=== PATIENT | male | born 1990 ===

== ENCOUNTER 2018-10-16 01:30 | Emergency (ER) | payer BC ==
--- NOTE | 2018-10-16 02:09 | ED PDOC ---
HPI: CCC, URI, Sore Throat Time Seen by Provider: 10/16/18 01:45 Chief Complaint (Nursing): Flu-like Symptoms Chief Complaint (Provider): fever History Per: Patient History/Exam Limitations: no limitations Onset/Duration Of Symptoms: Days (3) Current Symptoms Are (Timing): Still Present Associated Symptoms: Fever, Cough, Myalgias, Nasal Congestion Additional Complaint(s): 28 y/o male presents for evaluation of fever x 3 days. Associated headache, bodyaches, nasal congestion, and productive cough. Denies ear pain, sore throat, vomiting, shortness of breath, changes in bowel movements, urinary symptoms, recent travel, sick contacts. Patient has been taking Dayquil and a friends Amoxicillin with little improvement Past Medical History Reviewed: Historical Data, Nursing Documentation, Vital Signs Vital Signs: Last Vital Signs Temp 100.3 F H 10/16/18 01:45 Pulse 91 H 10/16/18 01:45 Resp 18 10/16/18 01:45 BP 124/65 10/16/18 01:45 Pulse Ox 99 10/16/18 01:45 Primary Care Provider: FAMILY PROVIDER,NO - Medical History PMH: No Chronic Diseases - Surgical History Surgical History: No Surg Hx - Family History Family History: States: No Known Family Hx - Living Arrangements Living Arrangements: With Family - Home Medications Home Medications: Ambulatory Orders Medication Instructions Recorded Fluticasone Nasal [Flonase] 1 actuation NS BID #1 bottle 10/16/18 Ibuprofen [Motrin Tab] 1 tab PO Q6 PRN #20 tab 10/16/18 guaiFENesin/Dextromethorphan 1 - 2 tab PO Q12H PRN #20 tab 10/16/18 [guaiFENesin/DM 600-30 mg] - Allergies Allergies/Adverse Reactions: Allergies Allergy/AdvReac Type Severity Reaction Status Date / Time No Known Allergies Allergy Verified 10/16/18 02:06 Review of Systems ROS Statement: Except As Marked, All Systems Reviewed And Found Negative Constitutional: Positive for: Fever, Chills ENT: Positive for: Nose Congestion Respiratory: Positive for: Cough Physical Exam - Reviewed Nursing Documentation Reviewed: Yes Vital Signs Reviewed: Yes - Physical Exam Appears: Positive for: Well, Non-toxic, No Acute Distress Head Exam: Positive for: ATRAUMATIC, NORMAL INSPECTION, NORMOCEPHALIC Skin: Positive for: Normal Color Eye Exam: Positive for: Normal appearance ENT: Positive for: Nasal Congestion Cardiovascular/Chest: Positive for: Regular Rate, Rhythm Respiratory: Positive for: Normal Breath Sounds Gastrointestinal/Abdominal: Positive for: Normal Exam Back: Positive for: Normal Inspection Extremity: Positive for: Normal ROM Neurological/Psych: Positive for: Awake, Alert, Oriented (x3) - ECG O2 Sat by Pulse Oximetry: 99 Pulse Ox Interpretation: Normal - Radiology X-Ray: Viewed By Me X-Ray Interpretation: No Acute Disease - Progress ED Course And Treament: -influenza -cxr -ibuprofen Patient educated on findings, discharged with rx ibuprofen, flonase, mucinex-DM Advised increase fluid intake, rest Follow up PMD within 2-3 days Return precautions given Disposition - Clinical Impression Clinical Impression: URI (upper respiratory infection) - Patient ED Disposition Is Patient to be Admitted: No Counseled Patient/Family Regarding: Studies Performed, Diagnosis, Need For Followup, Rx Given - Disposition Disposition: Routine/Home Disposition Time: 03:32 Condition: IMPROVED Prescriptions: Fluticasone Nasal [Flonase] 1 actuation NS BID #1 bottle guaiFENesin/Dextromethorphan [guaiFENesin/DM 600-30 mg] 1 - 2 tab PO Q12H PRN #20 tab PRN Reason: Cough And Congestion Ibuprofen [Motrin Tab] 1 tab PO Q6 PRN #20 tab PRN Reason: Fever >100.4 F Instructions: Viral Upper Respiratory Infection, Adult (DC) Forms: [facility] ([employer])
[2018-10-16 03:54] VITALS: BP 140/85; PULSE 81; RESP 14; TEMP 99.2; O2SAT 97
--- NOTE | 2018-10-16 08:11 | RAD ---
Date of service: 10/16/2018 HISTORY: fever, cough COMPARISON: No prior. TECHNIQUE: Chest PA and lateral views FINDINGS: LUNGS: No active pulmonary disease. PLEURA: No significant pleural effusion identified. No pneumothorax apparent. CARDIOVASCULAR: No aortic atherosclerotic calcification present. Normal cardiac size. No pulmonary vascular congestion. OSSEOUS STRUCTURES: No significant abnormalities. VISUALIZED UPPER ABDOMEN: Normal. OTHER FINDINGS: None. IMPRESSION: No acute cardiopulmonary disease appreciated.
== END 2018-10-16 04:05 | disposition home or self-care (01) ==
LOC: H.ER 01:30
DX: J06.9 Acute upper respiratory infection, unspecified (principal)